=== PATIENT | female | born 1985 | race Caucasian/White ===

== ENCOUNTER 2018-10-31 05:43 | Inpatient (IN) ==
--- NOTE | 2018-10-29 15:11 | PAT Medication Instructions ---
Medication Instructions Date of Service October 29, 2018 Home Medications acetaminophen [Tylenol] 650 mg PO QID PRN 1 dose PO QAM DO NOT take the morning of surgery 1 dose PO QAM Take morning of surgery With a small sip of water, OTHERWISE NOTHING TO EAT OR DRINK AFTER MIDNIGHT: acetaminophen [Tylenol] 650 mg PO QID PRN (okay to take up to 4 hours prior to surgery if needed) Take evening before surgery acetaminophen [Tylenol] 650 mg PO QID PRN(if needed) Other Notes If you have any questions please call us at [phone] or [phone] or [phone] or [phone]
--- NOTE | 2018-10-30 10:51 | History and Physical Report ---
DATE OF ADMISSION: 10/31/2018 ADMITTING DIAGNOSES: 1. Term . 2. Previous section x2. 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 ADMISSION HISTORY: The patient is a 32-year-old 3, para 2 with an EDC of 06 November by dates and first trimester ultrasound who is admitted at 39+ weeks gestational age for an elective repeat section. The patient's 2 previous sections [address] in [facility]. The patient was not a candidate for vaginal after section. Laboratory values for the show a blood type of B positive, antibody negative, rubella immune, hepatitis B negative. She had a negative cell free DNA screening, normal 1-hour Glucola x2, and a positive third trimester beta strep culture. The patient states for the last 3 days, she has been having upper respiratory tract symptoms with a cough and stuffy nose. She denies any fever or productive cough. PAST MEDICAL HISTORY: OB: As above. WIRE SPIRAL BINDER: None. MEDICAL: None. SURGICAL: section x2. ALLERGIES: BENADRYL AND REGLAN. SOCIAL HISTORY: No smoking. FAMILY HISTORY: Noncontributory. REVIEW OF SYSTEMS: As per HPI. ADMISSION PHYSICAL EXAMINATION: GENERAL: Shows a gravid female in no acute distress. VITAL SIGNS: Blood pressure 112/60 and weight of 143 pounds. HEENT EXAMINATION: Unremarkable. NECK: Supple. LUNGS: Clear. HEART: With a regular rhythm and rate. ABDOMEN: Gravid, vertex, positive heart tones, estimated weight of 6-1/2 pounds. PELVIC: Deferred. EXTREMITIES: Shows no deep calf tenderness. NEUROLOGIC: Grossly intact. IMPRESSION: A 32-year-old 3, para 2, 39+ weeks gestational age for elective repeat section. PLAN: Risks, benefits and alternatives to the surgery have been discussed. While the benefits will be delivery of the infant, the risks are bleeding, infection, inadvertent injury to bowel or bladder, readmission or reoperation. Permit has been signed and she wishes to proceed.
--- NOTE | 2018-10-30 11:00 | Anesthesiology Consultation ---
Date of Service October 30, 2018 Assessment & Plan (1) Encounter for pre-operative examination: Chart Review Chart Review: Acceptable Risk for Surgery and Patient seen in Pre Admission Testing Consults Requested none Teaching & Discussion Pre-Anesthesia Teaching/Discussion Notes: Instructed NPO after midnight before surgery, except medications with 15 cc of water. Medication instructions provided according to the PAT guidelines. History Surgery Operation Date: 10/31/18 07:30 Proposed Procedures p Section in LD - Keith Cole Jr, MD, FACOG Height/Weight Height: 4 ft 11.45 in Weight: 65.3 kg Allergies Allergy/AdvReac Type Severity Reaction Status Date / Time diphenhydramine AdvReac Verified 10/25/18 15:11 [From Benadryl] metoclopramide [From Reglan] AdvReac Verified 10/25/18 15:11 Medications Home Medications Medication Instructions Recorded Confirmed Last Taken acetaminophen [Tylenol] 650 mg PO QID PRN 04/21/18 10/25/18 Unknown 1 dose PO QAM 10/25/18 10/25/18 Unknown Past Medical History Medical History Migraine (Chronic) Exercise / Class Metabolic Activity II 4-5 Yardwork/Stairs/Walk up hill (Spends alot of time studying and working on her PHd. Does climb stairs and eveline after/play with her daughters. Denies CP or SOB. ) Past Surgical History Surgical History Bartholin's cyst Removed ~2014 History of X 2 Hx of LASIK Past Anesthesia History No Hx of Anesthesia Complications and No Family Hx of Anesthesia Complications Did have problems with 2nd , but she thinks it was anxiety (difficulty breathing, pressure, nausea). Ended up being converted to general anesthesia History of PONV No Hx of PONV and No Hx of Motion Sickness Social History Smoking Status: Never smoker Do You Dip or Chew Tobacco: No Hx Alcohol Use: No Hx Substance Use: No substance use type: does not use Review of Systems Patient denies chest pain, shortness of breath, dyspnea on exertion, joint pain, reflux, cough, wheezing, palpitations. +Palpitations (has happened occasionally with hypotension in ) Physical Exam Vital Signs BP: 107/71 P: 101 R: 18 T: 98.1 SPO2: 97% on RA ENMT Mouth: + dental restorations Thyromental Distance: > or= 3.5 Finger Breadths (3.5) Mallampati Class: I Neck neck extension not limited Difficult to assess overall due to cultural head wrap Respiratory normal respiratory effort Auscultation: lungs clear to auscultation bilaterally Cardiovascular Rate/Rhythm: regular rate and regular rhythm Heart Sounds: no murmur Neurologic moves all extremities Psychiatric Orientation: alert and oriented x 3
[2018-10-31] MEDS ORDERED: LACTATED RINGER'S 1,000 ML IV SCH ×4 (05:45→09:49)
--- OUTSIDE RECORDS SUMMARY | 2018-10-31 05:46 | External Medical Summary | Continuity of Care Document ---
:1985 Author Name Eduard Durham, Provider Address Unavailable Unavailable , Care Team Providers Name Role Phone Keith Cole [email or web address] PCP, NO Unavailable Unavailable Unavailable Unavailable Unavailable Problems Encounter for supervision of normal preg chris in multigravida in third trimester (V22.1) (Z34.83) History of delivery, currently (654.20) (O 34.219) GBS carrier (V02.51) (Z22.330) Allergies and Adverse Reactions Benadryl CAPS (Allergy) Reglan TABS (Allergy) Medications TABS Refills: 0 Procedures History of Section Status: Comp leted Immunizations Tdap (Adacel) On: 16-Aug-2018 11:51 Lot #: [id number], SANOFI PASTEUR Family History Father Family history of diabetes mellitus (V18.0) (Z83.3) Status: Active Mother Family history of hypertension (V17.49) (Z82.49) Status: Act maria a Plan of Treatment Planned Encounters Appointment; Keith Cole M.D. Start: 31-Oct-2018 8:00 R equest Planned Observations Planned Goals not documented Results No Known Results Results not documented Vital Signs 30-Oct-2018 9:52 Systolic 112 mm[Hg] Diastolic 60 mm[Hg] Height 59 in Weight 143.25 lb BSA Calculated 1.6 m2 BMI Calculated 28.93 kg/m2 24-Oct-2018 11:32 Systolic 112 mm[Hg] Diastolic 82 mm[Hg] Height 59 in Weight 145.125 lb BSA Calculated 1.61 m2 BMI Calculated 29.31 kg/m2 16-Oct-2018 11:21 Systolic 118 mm[Hg] Diastolic 60 mm[Hg] Height 59 in Weight 144.125 lb BSA Calculated 1.6 m2 BMI Calculated 29.11 kg/m2 10-Oct-2018 11:31 Systolic 118 mm[Hg] Diastolic 82 mm[Hg] Height 59 in Weight 142.5 lb BSA Calculated 1.6 m2 BMI Calculated 28.78 kg/m2 Encounters Appointment; Keith Cole M.D. 30-Oct-2018 9:40 Encounter Diagnosis: Problem not documented Appointment; Keith Cole M.D. 24-Oct-2018 11:40 Encounter Diagnosis: Problem not documented Appointment; Allison Vazquez DO 16-Oct-2018 11:10 Encounter Diagnosis: Problem not documented Appointment; Areli Bradley M.D. 10-Oct-2018 11:30 Encounter Diagnosis: Problem not documented Appointment; Areli Bradley M.D. 25-Sep-2018 11:40 Encounter Diagnosis: Problem not documented Appointment; Allison Vazquez DO 11-Sep-2018 11:20 Encounter Diagnosis: Problem not documented Appointment; Keith Cole M.D. 29-Aug-2018 13:30 Encounter Diagnosis: Problem not documented Appointment; Allison Vazquez DO 16-Aug-2018 10:10 Encounter Diagnosis: Problem not documented Appointment; Allison Vazquez DO 25-Jul-2018 9:40 Encounter Diagnosis: Problem not documented Appointment; Areli Bradley M.D. 27-Jun-2018 11:50 Encounter Diagnosis: Problem not documented Appointment; OBGYN SC1, Ultrasound 27-Jun-2018 11:00 Encounter Diagnosis: Problem not documented Appointment; Zoë Zepeda M.D. 21-May-2018 11:30 Encounter Diagnosis: Problem not documented Appointment; Luz Castillo M.D. 23-Apr-2018 10:30 Encounter Diagnosis: Problem not documented Appointment; OBGYN SC2, Ultrasound 02-Apr-2018 13:30 Encounter Diagnosis: Problem not documented Appointment; OB SC1, Procedure Rm 26-Mar-2018 10:40 Encounter Diagnosis: Problem not documented Appointment; Allison Vazquez DO 26-Mar-2018 10:40 Encounter Diagnosis: Problem not documented Appointment; OB SC1, Nursing Station 21-Mar-2018 10:45 Encounter Diagnosis: Problem not documented Appointment; Keith Cole M.D. 31-Oct-2018 8:00 Encounter Diagnosis: Problem not documented
[2018-10-31] MEDS ORDERED: CEFAZOLIN 2,000 MG in SYRINGE 0 ML IV SCH (06:00)
[2018-10-31] MEDS ORDERED: CEFAZOLIN 2000MG 2,000 MG/15 ML SYR IV SCH (06:00)
[2018-10-31] MEDS ORDERED: CITRIC ACID/SODIUM CITRATE 15 ML UDC PO SCH ×2 (06:00)
[2018-10-31 06:13] LABS: Basophils # (auto) 0.01 K/uL (0-0.2); Basophils % (auto) 0.1 %; Eosinophils # (auto) 0.06 K/uL (0-0.5); Eosinophils % (auto) 0.9 %; Hematocrit (blood only) 32.3 % (37-47); Hemoglobin 10.8 g/dL (12.0-16.0); Immature Granulocytes # (auto) 0.04 K/uL (0.00-0.02); Immature Granulocytes % (auto) 0.6 %; Lymphocytes % (auto) 32.8 %; Mean Corpuscular Volume 79.2 fL (80-100); Mean Platelet Volume 9.5 fL (7.4-10.4); Monocytes # (auto) 0.63 K/uL (0.11-0.59); Monocytes % (auto) 9.4 %; Neutrophils # (auto) 3.76 K/uL (1.4-6.5); Neutrophils % (auto) 56.2 %; Platelet Count 142 K/uL (130-400); RDW Coefficient of Variation 14.7 % (11.5-14.5); RDW Standard Deviation 42.1 fL (36.4-46.3); Red Blood Count 4.08 M/uL (4.2-5.4)
[2018-10-31 06:15] LABS: Mean Corpuscular Hgb Conc 33.4 g/dL (32-36)
--- NOTE | 2018-10-31 07:23 | History & Physical Bridge Note ---
Date of Service October 31, 2018 History & Physical Bridge Note I have examined the patient, reviewed the History & Physical and in the interval since the performance of the History & Physical I have noted the following changes of clinical significance: no changes noted
[2018-10-31] MEDS ORDERED: MoRPHine SULFATE PF 1 MG/ML 10 ML AMP/VIAL ONE (07:29)
[2018-10-31] MEDS ORDERED: NALBUPHINE HCL INJ 10 MG/ML AMP IV PRN (08:10)
[2018-10-31] MEDS ORDERED: NALOXONE HCL 0.4 MG/1 ML VIAL/CARP IV PRN (08:10)
[2018-10-31] MEDS ORDERED: ePHEDrine sulfate 50 MG/ML AMP IV PRN (08:10)
[2018-10-31] MEDS ORDERED: NALOXONE HCL 0.08 MG in SYRINGE 1.8 ML IV PRN (08:10)
[2018-10-31] MEDS ORDERED: NALOXONE HCL 1 MG in SODIUM CHLORIDE 0.9% 1000ML 1,000 ML IV PRN (08:10)
[2018-10-31] MEDS ORDERED: ONDANSETRON INJ 2 MG/ML 2 ML VIAL IV PRN (08:10)
[2018-10-31] MEDS ORDERED: PROMETHAZINE HCL 6.25 MG in SODIUM CHLORIDE 0.9% 50 ML IV PRN (08:10)
[2018-10-31] MEDS ORDERED: LACTATED RINGER'S 500 ML IV PRN (08:10)
[2018-10-31] MEDS ORDERED: MEPERIDINE HCL 25 MG/ML CARP IV PRN (08:10)
[2018-10-31] MEDS ORDERED: MoRPHine SULFATE PF 1 MG/ML 10 ML AMP/VIAL INT SPINAL ONE (08:10)
[2018-10-31] MEDS ORDERED: SODIUM CHLORIDE 0.9% 1000ML 1,000 ML IV SCH (08:15)
[2018-10-31] MEDS ORDERED: NO NARCOTICS OR SEDATIVES SCH (08:15)
[2018-10-31] MEDS ORDERED: ONDANSETRON INJ 2 MG/ML 2 ML VIAL ONE (08:52)
[2018-10-31] MEDS ORDERED: PROPOFOL IV EMULSION 10 MG/ML 20 ML VIAL IV ONE (08:52)
[2018-10-31] MEDS ORDERED: ePHEDrine sulfate 50 MG/ML SYR ONE (08:52)
[2018-10-31] MEDS ORDERED: LIDOCAINE HCL 2% MPF (LOCAL) 5 ML VIAL INFIL ONE (08:52)
[2018-10-31] MEDS ORDERED: SUCCINYLCHOLINE CHLORIDE 20 MG/ML 10 ML VIAL ONE (08:52)
[2018-10-31] MEDS ORDERED: PHENYLEPHRINE 100MCG/ML 5ML SYR ONE (08:52)
--- NOTE | 2018-10-31 09:21 | Post Operative Brief Note ---
Immediate Post Op Note v1 Date of Surgery October 31, 2018 Pre & Post Diagnosis Operation Date: 10/31/18 07:30 Pre-Op Diagnosis: Term . Previous section times two. Post-Op Diagnosis: Same Procedure Operation Date: 10/31/18 07:30 Actual Procedures p Section in LD - Keith Cole Jr, MD, FACOG Surgeon Keith Cole Jr, MD, FACOG Starting Sheet Tank Operator Romana Estimated Blood Loss 800 Findings See Below (viable male, Apgars 9/9, weight 7lbs 1 oz, gasses pending,normal appearing tubes and ovaries bilaterally) Drains Jacobson Catheter
[2018-10-31] MEDS ORDERED: BENZOCAINE 20% AER SPR 82.5 GM CAN EXT PRN (09:49)
[2018-10-31] MEDS ORDERED: DIPHTHERIA/TETANUS/PERTUSSIS 0.5 ML SYR/VIAL IM ONE (09:49)
[2018-10-31] MEDS ORDERED: SUPERCREAM 0.870% 15 GM JAR EXT PRN (09:49)
[2018-10-31] MEDS ORDERED: HYDROCORTISONE ACETATE 25 MG SUPP PR PRN (09:49)
[2018-10-31 10:06] LABS: Base Excess Cord Arterial Bld -0.1 mEq/L (-9-1.8); CO2 Cord Arterial Blood 48 mmHg (39.1-73.5); HCO3 Cord Arterial Blood 26 mmol/L (19.7-28.5); PO2 Cord Arterial Blood 23.4 % (4.1-31.7); pH Cord Arterial Blood 7.35 (7.1-7.38)
[2018-10-31] MEDS: OXYTOCIN 20 UNITS in LACTATED RINGER'S 1,000 ML IV SCH ×2 (10:06→18:33)
[2018-10-31 10:10] LABS: Base Excess Cord Venous Blood -0.3 mEq/L (-7.7-1.9); Cord Venous Blood HCO3 25 mmol/L (18.4-26.8); Cord Venous Blood PCO2 45 mmHg (30.4-57.2); Cord Venous Blood PO2 24 mmHg (14.1-43.3); Cord Venous Blood pH 7.37 (7.20-7.44)
[2018-10-31 10:15] LABS: O2 Saturation Cord Venous Bld < 60.0 % (<68)
--- NOTE | 2018-10-31 13:08 | Operative Report ---
DATE OF OPERATION: 10/31/2018 PREOPERATIVE DIAGNOSES: 1. Term . 2. Previous section x2. POSTOPERATIVE DIAGNOSES: 1. Term . 2. Previous section x2. PROCEDURE PERFORMED: Repeat low cervical transverse section. SURGEON: Keith Cole MD DRAWER IN: Petrona Avendano MD ANESTHESIA: Spinal. FINDINGS: Viable male infant with Apgars of 9 and 9, and weight of 7 pounds 1 ounce. Arterial and venous cord gases are pending. Normal-appearing tubes and ovaries bilaterally. PROCEDURE IN DETAIL: The patient was taken to the operating room and after spinal anesthesia, was placed in supine position and draped and prepped in the usual fashion. Pfannenstiel type incision through previous surgical scar was made. Underlying subcutaneous tissue was dissected down to the ventral abdominal fascia, which was nicked and opened in a horizontal manner. Preperitoneal fascia was dissected away until the peritoneal cavity was entered and opened in a vertical manner. Bladder blade was placed. Attempt at creating a bladder flap was unsuccessful secondary to adhesions. The uterus was entered sharply in the lower uterine segment. The lower uterine segment was markedly thinned. The incision was extended manually. Viable male was delivered. Cord was clamped and cut and the baby was passed off to pediatrics who was in attendance for the delivery. Cord gases, cord blood samples obtained. Placenta was delivered spontaneously and sent for pathological evaluation. The uterus was exteriorized. The uterine cavity was wiped clean of any residual blood tissue and/or clot. The uterine incision was closed with 2 layers of 4-0 Vicryl, the first a running locking stitch, the second an imbricating stitch. Hemostasis achieved and the uterus was returned to the pelvic cavity. Pericolic gutters were cleared bilaterally of any blood tissue and/or clot. Sponge and needle count was correct. The rectus muscle was then plicated in the midline with a running 2-0 Vicryl stitch. The fascia was closed laterally with a running 0 Vicryl suture. The subcutaneous tissue was irrigated with warm saline and the skin incision was closed with a 4-0 Monocryl subcuticular suture. Sterile dressing was applied. The patient was taken to the recovery room in satisfactory condition. I attest to the content of the Intraoperative Record and any orders documented therein. Any exception s are noted below.
[2018-10-31] MEDS: SIMETHICONE 80 MG CHEW PO SCH ×3 (13:43→20:22)
[2018-10-31] MEDS: KETOROLAC 30 MG/ML VIAL IV PRN ×2 (13:44→20:22)
--- NOTE | 2018-10-31 13:46 | Anesthesiology Progress Note ---
Date of Service October 31, 2018 Anesthesia Post Procedure Vital Signs Vital Signs: Temp Pulse Pulse Resp BP BP Pulse Ox 10/31/18 12:25 36.8 C 88 16 96/61 L 99 10/31/18 12:11 87 99 10/31/18 12:06 91 H 98 10/31/18 12:01 89 100 10/31/18 11:56 94 H 99 10/31/18 11:51 104 H 100 10/31/18 11:46 102 H 99 10/31/18 11:41 96 H 100 10/31/18 11:40 36.8 C 18 10/31/18 11:36 102 H 96 10/31/18 11:31 106 H 100 10/31/18 11:26 112 H 100 10/31/18 11:21 119 H 100 10/31/18 11:16 128 H 100 10/31/18 11:12 106 H 103/63 10/31/18 11:11 120 H 99 10/31/18 11:10 36.5 C 18 10/31/18 11:06 119 H 100 10/31/18 11:01 118 H 100 10/31/18 10:56 113 H 99 10/31/18 10:54 108 H 103/62 10/31/18 10:51 111 H 100 10/31/18 10:46 107 H 98 10/31/18 10:45 107 H 97/64 L 10/31/18 10:43 86 98/61 L 10/31/18 10:41 94 H 99 10/31/18 10:40 18 10/31/18 10:36 111 H 95 10/31/18 10:35 133 H 99/63 L 10/31/18 10:31 128 H 95 10/31/18 10:30 18 10/31/18 10:29 104 H 94/62 L 10/31/18 10:26 108 H 100 10/31/18 10:25 107 H 82/63 L 10/31/18 10:23 133 H 83/51 L 10/31/18 10:22 166 H 85/46 L 10/31/18 10:21 137 H 100 10/31/18 10:20 35.8 C L 18 10/31/18 10:16 133 H 100 10/31/18 10:11 148 H 90 10/31/18 10:10 18 10/31/18 10:06 117 H 100 10/31/18 10:05 75 100/60 10/31/18 10:01 135 H 92 10/31/18 10:00 18 10/31/18 09:56 145 H 96 10/31/18 09:55 76 108/62 10/31/18 09:51 131 H 100 10/31/18 09:50 18 10/31/18 09:46 131 H 100 10/31/18 09:44 122 H 112/65 10/31/18 09:41 134 H 100 10/31/18 09:40 35.6 C L 18 10/31/18 09:36 76 100 10/31/18 09:35 74 105/51 L 10/31/18 06:01 83 97/50 L 10/31/18 05:52 36.9 C 83 18 97/50 L Pain Intensity Abdomen: Pain Intensity: 1 Transfer of Care Handoff Completed per policy Notes Mental Status: alert / awake / arousable Patient Amnestic to Procedure: Yes Nausea / Vomiting: adequately controlled Pain: adequately controlled Airway Patency, RR, SpO2: stable & adequate BP & HR: stable & adequate Hydration State: stable & adequate Neuraxial Anesthesia: was administered and sensory block is resolving Anesthetic Complications: no major complications apparent
[2018-11-01] MEDS ORDERED: DC INTRASPINAL MORPHINE SCH (02:11)
[2018-11-01] MEDS ORDERED: KETOROLAC 30 MG/ML VIAL IV PRN (02:12)
[2018-11-01] MEDS ORDERED: ONDANSETRON INJ 2 MG/ML 2 ML VIAL IV PRN (02:12)
[2018-11-01] MEDS: OXYCODONE/ACETAMINOPHEN 5mg/325mg TAB PO PRN ×4 (05:42→21:04)
[2018-11-01] MEDS: IBUPROFEN 600 MG TAB PO PRN ×4 (05:42→21:04)
[2018-11-01 06:44] LABS: Hematocrit (blood only) 30.3 % (37-47); Hemoglobin 9.8 g/dL (12.0-16.0); Mean Corpuscular Hgb Conc 32.3 g/dL (32-36); Mean Corpuscular Volume 80.6 fL (80-100); Mean Platelet Volume 9.5 fL (7.4-10.4); Platelet Count 129 K/uL (130-400); RDW Coefficient of Variation 14.7 % (11.5-14.5); Red Blood Count 3.76 M/uL (4.2-5.4); White Blood Count 10.43 K/uL (4.8-10.8)
--- NOTE | 2018-11-01 06:59 | Obstetrical Progress Note ---
Date of Service November 01, 2018 Assessment & Plan (1) S/P : 25yo pod1 s/p at -Vital signs WNL bp 91/54 T36.5, pt reports baseline hypotension -Hemoglobin 10.8 on admission. no si/sx of anemia. -Pt is doing clinically well -Continue to encourage ambulation as tolerated, Monitor and control pain with Motrin, toradol, oxycodone q4h prn. -Advanced diet to reg ob continue as tolerated -plan is to bottle feed -routine post op care Supervising Physician Co-Signing Physician Notes Resident Physician Supervision Note: I was present with Dr. Mallory during the history and exam. I discussed the case with the resident and agree with the findings and plan as documented in the note. Any exceptions or clarifications are listed here: Discussed surgery and findings with patient. Begin ambulation, routine care. Documented By: Keith Cole Jr, MD, FACOG Subjective PT did well overnight, some dizziness/ pain with standing. reports she is normally hypotensive. Patient is tolerating her diet, passing gas and voiding, no bm. Reports moderate lochia. Denies H/A, chest pain, palpitations and uti syx. Answered all questions, no concerns at present, pain is well controlled Physical Exam Physical Exam: Constitutional: WD/WN, vitals as above no acute distress Eyes: normal visual goldman by confrontation Neck: normal visual inspection Respiratory: normal respiratory effort, lungs clear to auscultation Cardiovascular: RRR, no murmur, no edema Heart Sounds: normal S1 and normal S2 Extremities: no calf tenderness Gastrointestinal (Abdomen): Uterus firm and below the umbilicus Surgical site clean dry and intact Results & Data Vital Signs (Past 12 Hours) Vital Signs Temp Pulse Pulse Resp BP Pulse Ox 11/01/18 03:00 36.5 C 84 18 91/54 L 96 11/01/18 02:30 18 99 11/01/18 01:25 18 98 11/01/18 00:20 18 98 10/31/18 23:50 36.6 C 88 18 90/54 L 97 10/31/18 22:15 16 98 10/31/18 21:15 18 97 10/31/18 20:10 37.6 C H 108 H 18 93/59 L 97 10/31/18 19:30 18 98 Laboratory Results 11/01/18 10/31/18 10/31/18 Range/Units 06:18 08:55 08:55 WBC 10.43 (4.8-10.8) K/uL RBC 3.76 L (4.2-5.4) M/uL Hgb 9.8 L (12.0-16.0) g/dL Hct 30.3 L (37-47) % MCV 80.6 (80-100) fL MCH 26.1 (25-34) pg MCHC 32.3 (32-36) g/dL RDW Std Deviation 43.0 (36.4-46.3) fL RDW Coeff of Olivia 14.7 H (11.5-14.5) % Plt Count 129 L (130-400) K/uL MPV 9.5 (7.4-10.4) fL Cord ABG pH 7.35 (7.1-7.38) Cord ABG pCO2 48 (39.1-73.5) mmHg Cord ABG pO2 23.4 (4.1-31.7) % Cord ABG HCO3 26 (19.7-28.5) mmol/L Cord ABG Base Excess -0.1 (-9-1.8) mEq/L Cord ABG O2 Sat < 60.0 (<60) % Cord VBG pH 7.37 (7.20-7.44) Cord VBG pCO2 45 (30.4-57.2) mmHg Cord VBG pO2 24 (14.1-43.3) mmHg Cord VBG HCO3 25 (18.4-26.8) mmol/L Cord VBG Base Excess -0.3 (-7.7-1.9) mEq/L Cord VBG O2 Sat < 60.0 (<68) % Barometric Pressure 735.2 735.4 mm/Hg Blood Gas Comments ALVAREZ ALVAREZ Blood Type Antibody Screen 10/31/18 Range/Units 06:02 WBC (4.8-10.8) K/uL RBC (4.2-5.4) M/uL Hgb (12.0-16.0) g/dL Hct (37-47) % MCV (80-100) fL MCH (25-34) pg MCHC (32-36) g/dL RDW Std Deviation (36.4-46.3) fL RDW Coeff of Olivia (11.5-14.5) % Plt Count (130-400) K/uL MPV (7.4-10.4) fL Cord ABG pH (7.1-7.38) Cord ABG pCO2 (39.1-73.5) mmHg Cord ABG pO2 (4.1-31.7) % Cord ABG HCO3 (19.7-28.5) mmol/L Cord ABG Base Excess (-9-1.8) mEq/L Cord ABG O2 Sat (<60) % Cord VBG pH (7.20-7.44) Cord VBG pCO2 (30.4-57.2) mmHg Cord VBG pO2 (14.1-43.3) mmHg Cord VBG HCO3 (18.4-26.8) mmol/L Cord VBG Base Excess (-7.7-1.9) mEq/L Cord VBG O2 Sat (<68) % Barometric Pressure mm/Hg Blood Gas Comments Blood Type B Positive Antibody Screen NEGATIVE Medications Administered Current Inpatient Medications Benzocaine (Dermoplast Pain Relieving [place]) 1 appln EXT UD PRN PRN Reason: use on skin as needed Stop: 11/30/18 09:48 Cocaine HCl (Supercream 0.870%) 1 gm EXT UD PRN PRN Reason: hemmorrhoidal inflammation Stop: 11/14/18 09:48 Ferrous Sulfate (Feosol) 325 mg PO QAM [facility] Stop: 12/01/18 08:59 Hydrocortisone (Anusol Hc) 25 mg CO BID PRN PRN Reason: Hemorrhoids Stop: 11/30/18 09:48 Lactated Ringer's (Lr) 1,000 mls @ 125 mls/hr IV .Q8H RADHA Stop: 11/30/18 09:48 Ibuprofen (Motrin) 600 mg PO Q4H PRN PRN Reason: Pain Stop: 11/30/18 09:48 Last Admin: 11/01/18 05:42 Dose: 600 mg Documented by: Ketorolac Tromethamine (Toradol) 30 mg IV Q6H PRN PRN Reason: Pain Stop: 11/06/18 02:11 Magnesium Hydroxide (Milk Of Magnesia) 30 ml PO HS RADHA Stop: 12/01/18 20:59 Ondansetron HCl (Zofran) 4 mg IV Q4H PRN PRN Reason: Nausea And Vomiting Stop: 12/01/18 02:11 Oxycodone/Acetaminophen (Percocet 5mg/325mg) 1 - 2 tab PO Q4H PRN PRN Reason: Pain Stop: 11/15/18 02:11 Last Admin: 11/01/18 05:42 Dose: 2 tab Documented by: Prenat Multivit/Mixing Machine Operator/Iron/Folic Ac ( Vitamin) 1 tab PO QAM [facility] Stop: 12/01/18 08:59 Sennosides (Senokot) 17.2 mg PO HS [facility] Stop: 12/01/18 20:59 Simethicone (Mylicon) 80 mg PO QID [facility] Stop: 11/30/18 12:59 Last Admin: 10/31/18 20:22 Dose: 80 mg Documented by: Resident Activity Tracking Resident Involvement: Resident Care Provided Care Provided: Adult Hospital Medicine
[2018-11-01 07:06] LABS: Basophils # (auto) 0.01 K/uL (0-0.2); Basophils % (auto) 0.1 %; Eosinophils # (auto) 0.06 K/uL (0-0.5); Eosinophils % (auto) 0.6 %; Immature Granulocytes # (auto) 0.03 K/uL (0.00-0.02); Immature Granulocytes % (auto) 0.3 %; Lymphocytes # (auto) 1.35 K/uL (1.2-3.4); Lymphocytes % (auto) 12.9 %; Monocytes # (auto) 0.83 K/uL (0.11-0.59); Neutrophils # (auto) 8.15 K/uL (1.4-6.5); Neutrophils % (auto) 78.1 %; Schistocytes 1+; Tear Drop Cells 1+
[2018-11-01] MEDS: SIMETHICONE 80 MG CHEW PO SCH ×4 (07:49→21:01)
[2018-11-01] MEDS: PRENATAL VITAMIN 1 TAB PO SCH (07:49)
[2018-11-01] MEDS: FERROUS SULFATE 325 MG TAB PO SCH (07:50)
--- NOTE | 2018-11-01 11:21 | Obstetrical Progress Note ---
Date of Service November 01, 2018 Subjective Nursing requested I come to the room to evaluate the patients abdomen, she reports a reducible mass superior to the uterine fundus. Pt denies pain, fever, tenderness, distension, or other si/sx of peritonitis. On exam there was a palpable mobile mass about 5 cm superior to the uterine fundus, the mass was not painful, felt tublar in nature. The patient has a thin body habitus, and is s/p likely with some diastasis recti. I think the mass likely represents bowel, not incarcerated or strangulated. Advised the patient to alert her nurses if the mass becomes painful, changes in size, she develops a fever, nausea, vomiting, has abdominal pain, or other si/sx of peritonitis. plan to reassess later this afternoon. Results & Data Vital Signs (Past 12 Hours) Vital Signs Temp Pulse Pulse Resp BP Pulse Ox 11/01/18 08:15 36.7 C 90 16 85/60 L 97 11/01/18 03:00 36.5 C 84 18 91/54 L 96 11/01/18 02:30 18 99 11/01/18 01:25 18 98 11/01/18 00:20 18 98 10/31/18 23:50 36.6 C 88 18 90/54 L 97 Resident Activity Tracking Resident Involvement: Resident Care Provided Care Provided: Adult Hospital Medicine
[2018-11-01] MEDS: MAGNESIUM HYDROXIDE SUSP 30 ML UDC PO SCH (21:01)
[2018-11-01] MEDS: SENNA 8.6 MG TAB PO SCH (21:03)
[2018-11-02] MEDS: IBUPROFEN 600 MG TAB PO PRN ×5 (02:45→23:43)
[2018-11-02] MEDS: OXYCODONE/ACETAMINOPHEN 5mg/325mg TAB PO PRN ×5 (02:46→23:43)
[2018-11-02] MEDS ORDERED: SODIUM CHLORIDE 0.65% NA SOLN 45 ML (OCEAN) ONE (04:16)
[2018-11-02 06:42] LABS: Hematocrit (blood only) 28.9 % (37-47); Hemoglobin 9.7 g/dL (12.0-16.0)
--- NOTE | 2018-11-02 06:52 | Obstetrical Progress Note ---
Date of Service November 02, 2018 Assessment & Plan (1) S/P : 25yo pod1 s/p at -Vital signs WNL bp 91/59 T36.7, pt reports baseline hypotension -Hemoglobin is 9.8 down from 10.8 on admission. no si/sx of anemia. -Pt is doing clinically well -Continue to encourage ambulation as tolerated, Monitor and control pain with Motrin, toradol, oxycodone q4h prn. -Advanced diet to reg ob continue as tolerated -plan is to bottle feed -routine post op care -plan for d/c tomorrow Supervising Physician Co-Signing Physician Notes Resident Physician Supervision Note: I was present with Dr. Mallory during the history and exam. I discussed the case with the resident and agree with the findings and plan as documented in the note. Any exceptions or clarifications are listed here: doing well. discussed evaluation yesterday, and this am. doubt hernia, likely routine diastasis. after 6wks can work on abs. she is jessica po, voiding and ambul without problem. routine care. h/h noted. incision c/d/i, ff 2 down. Documented By: Aure Salgado MD, FACOG Subjective Patient reports subjective improvement in abdominal mass, I was unable to appreciate it on physical exam this morning, after reexamining the patient I think the mass felt yesterday represets an umbilical hernia. Advised pt that it may heal on its own as her abdomen decreases in size and she resumes core exercises. Advised if no improvement can consider general surgey consult. Patient is tolerating her diet, ambulating, passing gas and voiding, still no bm. Reports moderate lochia. Denies H/A, chest pain, palpitations and uti syx. Answered all questions, no concerns at present, pain is well controlled Physical Exam Physical Exam: Constitutional: WD/WN, vitals as above no acute distress Eyes: normal visual goldman by confrontation Neck: normal visual inspection Respiratory: normal respiratory effort, lungs clear to auscultation Cardiovascular: RRR, no murmur, no edema Heart Sounds: normal S1 and normal S2 Extremities: no calf tenderness Gastrointestinal (Abdomen): Uterus firm and below the umbilicus, surgical site clean dry and intact, abdominal mass not appreciable today, although ?umbilical defect Results & Data Vital Signs (Past 12 Hours) Vital Signs Temp Pulse Resp BP Pulse Ox 11/01/18 23:45 36.7 C 66 16 91/59 L 96 Laboratory Results 11/02/18 11/01/18 Range/Units 06:19 06:18 Hgb 9.7 L (12.0-16.0) g/dL Hct 28.9 L (37-47) % Immature Gran % (Auto) 0.3 % Neut % (Auto) 78.1 % Lymph % (Auto) 12.9 % [place] % (Auto) 8.0 % Eos % (Auto) 0.6 % Baso % (Auto) 0.1 % Immature Gran # (Auto) 0.03 H (0.00-0.02) K/uL Neut # (Auto) 8.15 H (1.4-6.5) K/uL Lymph # (Auto) 1.35 (1.2-3.4) K/uL [place] # (Auto) 0.83 H (0.11-0.59) K/uL Eos # (Auto) 0.06 (0-0.5) K/uL Baso # (Auto) 0.01 (0-0.2) K/uL Tear Drop Cells 1+ Schistocytes 1+ Medications Administered Current Inpatient Medications Benzocaine (Dermoplast Pain Relieving [place]) 1 appln EXT UD PRN PRN Reason: use on skin as needed Stop: 11/30/18 09:48 Cocaine HCl (Supercream 0.870%) 1 gm EXT UD PRN PRN Reason: hemmorrhoidal inflammation Stop: 11/14/18 09:48 Ferrous Sulfate (Feosol) 325 mg PO QAM RADHA Stop: 12/01/18 08:59 Last Admin: 11/01/18 07:50 Dose: Not Given Documented by: Hydrocortisone (Anusol Hc) 25 mg ND BID PRN PRN Reason: Hemorrhoids Stop: 11/30/18 09:48 Lactated Ringer's (Lr) 1,000 mls @ 125 mls/hr IV .Q8H RADHA Stop: 11/30/18 09:48 Ibuprofen (Motrin) 600 mg PO Q4H PRN PRN Reason: Pain Stop: 11/30/18 09:48 Last Admin: 11/02/18 02:45 Dose: 600 mg Documented by: Ketorolac Tromethamine (Toradol) 30 mg IV Q6H PRN PRN Reason: Pain Stop: 11/06/18 02:11 Magnesium Hydroxide (Milk Of Magnesia) [address] [facility] Stop: 12/01/18 20:59 Last Admin: 11/01/18 21:01 Dose: 30 ml Documented by: Ondansetron HCl (Zofran) 4 mg IV Q4H PRN PRN Reason: Nausea And Vomiting Stop: 12/01/18 02:11 Oxycodone/Acetaminophen (Percocet 5mg/325mg) 1 - 2 tab PO Q4H PRN PRN Reason: Pain Stop: 11/15/18 02:11 Last Admin: 11/02/18 02:46 Dose: 1 tab Documented by: Brian Multivit/Survey Technologist/Iron/Folic Ac ( Vitamin) 1 tab PO QAM [facility] Stop: 12/01/18 08:59 Last Admin: 11/01/18 07:49 Dose: 1 tab Documented by: Sennosides (Senokot) 17.[address] [facility] Stop: 12/01/18 20:59 Last Admin: 11/01/18 21:03 Dose: 17.2 mg Documented by: Simethicone (Mylicon) 80 mg PO QID [facility] Stop: 11/30/18 12:59 Last Admin: 11/01/18 21:01 Dose: 80 mg Documented by: Resident Activity Tracking Resident Involvement: Resident Care Provided Care Provided: Adult Hospital Medicine
[2018-11-02] MEDS: SIMETHICONE 80 MG CHEW PO SCH ×4 (09:30→21:37)
[2018-11-02] MEDS: FERROUS SULFATE 325 MG TAB PO SCH (09:30)
[2018-11-02] MEDS: PRENATAL VITAMIN 1 TAB PO SCH (09:30)
[2018-11-02] MEDS: SENNA 8.6 MG TAB PO SCH (21:37)
[2018-11-03] MEDS: OXYCODONE/ACETAMINOPHEN 5mg/325mg TAB PO PRN ×4 (03:57→21:13)
[2018-11-03] MEDS: IBUPROFEN 600 MG TAB PO PRN ×4 (03:58→21:13)
[2018-11-03] MEDS: FERROUS SULFATE 325 MG TAB PO SCH (08:56)
[2018-11-03] MEDS: SIMETHICONE 80 MG CHEW PO SCH ×4 (08:56→21:12)
[2018-11-03] MEDS: PRENATAL VITAMIN 1 TAB PO SCH (08:56)
[2018-11-03] MEDS: MAGNESIUM HYDROXIDE SUSP 30 ML UDC PO SCH ×2 (09:00→21:11)
--- NOTE | 2018-11-03 10:06 | Obstetrical Progress Note ---
Date of Service November 03, 2018 Assessment & Plan (1) S/P : Abd distended with gas. Recommended frequent ambulation. Routine care. Will assess for d/c this afternoon Subjective Patient reporting abd pain. Passing small flatus. Otherwise meeting post goals Physical Exam Gastrointestinal (Abdomen): Percussion/Palpation: + abdomen tender, abdomen so ft and + tympanic to percussion Genitourinary: OB Exam Abdomen: + fundal height Fundus: + firm and + relation to umbilicus (Below); not tender and not boggy Results & Data Vital Signs (Past 12 Hours) Vital Signs Temp Pulse Resp BP Pulse Ox 11/02/18 23:30 97.5 F L 68 18 91/52 L 98
[2018-11-03] MEDS: guaiFENesin 600 MG TABCR PO SCH ×2 (11:25→21:12)
[2018-11-03] MEDS: SENNA 8.6 MG TAB PO SCH (21:12)
[2018-11-04] MEDS: IBUPROFEN 600 MG TAB PO PRN ×3 (04:00→13:17)
--- NOTE | 2018-11-04 07:29 | Obstetrical Progress Note ---
Date of Service November 04, 2018 Assessment & Plan (1) S/P : Doing well. POD 4. Stable for discharge Subjective Ambulation: ambulating normally Voiding: no voiding problems Diet Tolerance:: regular diet Lochia:: Moderate Feeding Type:: breast feeding Current Pain Level(1-10): 3 Physical Exam Vital Signs (Past 24 Hours) Last Vital Signs Temp 97.7 F 11/04/18 04:10 Pulse 75 11/04/18 04:10 Resp 18 11/04/18 04:10 BP 105/70 11/04/18 04:10 Pulse Ox 98 11/03/18 16:34 Gastrointestinal (Abdomen) Inspection/Auscultation: + abdominal surgical incision (Healing well) Genitourinary OB Exam Abdomen: + fundal height Fundus: + firm and + relation to umbilicus (Below); not tender and not boggy
[2018-11-04] MEDS: SIMETHICONE 80 MG CHEW PO SCH ×2 (08:34→12:42)
[2018-11-04] MEDS: guaiFENesin 600 MG TABCR PO SCH (08:35)
[2018-11-04] MEDS: OXYCODONE/ACETAMINOPHEN 5mg/325mg TAB PO PRN ×2 (08:35→13:17)
[2018-11-04] MEDS: PRENATAL VITAMIN 1 TAB PO SCH (08:35)
[2018-11-04] MEDS: FERROUS SULFATE 325 MG TAB PO SCH (08:35)
--- NOTE | 2018-11-04 10:44 | Discharge Summary ---
ADMITTING DIAGNOSES: 1. Term . 2. Previous section x2. 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 DISCHARGE DIAGNOSES: 1. Term . 2. Previous section x2. 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 PROCEDURES PERFORMED: Repeat low cervical transverse section. DISCHARGE MEDICATIONS: 1. Percocet 5/325 1-2 p.o. q.4-6 hours p.r.n. pain. 2. Motrin 600 mg p.o. q. 6 hours p.r.n. pain. ADMISSION HISTORY: The patient is a 32-year-old 3, para 2 with an EDC of 06 November by dates and first trimester ultrasound who is admitted at 39+ weeks gestational age for an elective repeat section. The patient has 2 previous sections in [facility]. The patient was not a candidate for a vaginal after section. Laboratory values for the show a blood type of B positive, antibody negative, rubella immune, hepatitis B negative. She had a negative cell-free DNA screening, normal 1 hour Glucola x2 and a positive third trimester beta strep culture. ADMISSION PHYSICAL EXAMINATION: GENERAL: Showed a gravid female in no acute distress. VITAL SIGNS: Blood pressure 112/60, weight of 143 pounds. HEENT: Unremarkable. NECK: Supple. LUNGS: Clear. HEART: With a regular rhythm and rate. ABDOMEN: Gravid, vertex, positive heart tones, estimated weight of 6-1/2 pounds. EXTREMITIES: Showed no deep calf tenderness. NEUROLOGIC: Grossly intact. ADMISSION LABORATORY VALUES: Showed an H and H of 10.8 and 32.3. HOSPITAL COURSE: On day of admission, the patient was taken to the operating room. She underwent the above-listed procedures. Operative findings showed a viable male infant with Apgars of 9 and 9 and weight of 7 pounds 1 ounce, normal-appearing tubes and ovaries bilaterally. Postoperatively, the patient did well. Jacobson catheter was removed on the first postoperative day. H and H came back at 9.8 and 30.3. By the 4th postoperative day, the patient was ambulating without difficulty and tolerating a regular diet. She was discharged home with the routine discharge instructions and the prescriptions for the medications as listed as above. She will follow up in the office for a check, but as always she has been instructed to call with any questions, problems or difficulties.
== END 2018-11-04 14:45 | disposition home or self-care (01) | DRG 788 ==
LOC: 4S1 05:43 → EDSTATUS 07:30 → 4S2 12:51